=== PATIENT | female | born 1980 | race Caucasian/White ===

== ENCOUNTER 2019-12-17 14:29 | Emergency (ER) | payer MEDICAID ==
[~2019-12-17] VITALS: Ht 157.5 cm; Wt 127.0 kg
[2019-12-17 14:29] VITALS: BP_SYST 116
[2019-12-17] MEDS: KETOROLAC TROMETHAMINE 30 MG VIAL IM ONE (15:27)
[2019-12-17 16:05] VITALS: BP_SYST 116
== END 2019-12-17 16:05 | disposition home or self-care (01) ==
LOC: SED 14:29
DX: M54.5 Low back pain (principal); R07.89 Other chest pain; V49.9XXA Car occupant (driver) (passenger) injured in unspecified traffic accident, initial encounter; Y93.89 Activity, other specified; Y92.413 State road as the place of occurrence of the external cause; Y99.8 Other external cause status
CPT/HCPCS: 71045; 72100; 93005; 96372; 99284; J1885